=== PATIENT | male | born 1955 | race Caucasian/White ===

== ENCOUNTER 2022-04-09 13:43 | Outpatient (CLI) | payer MEDICARE | END 2022-04-09 13:44 | disposition home or self-care (01) | LOC: RAD-FRANK 13:43 | PROVIDERS: ATTEND Nurse Practitioner Family | DX: M54.50 Low back pain, unspecified (principal); M47.816 Spondylosis without myelopathy or radiculopathy, lumbar region; M43.16 Spondylolisthesis, lumbar region | CPT/HCPCS: 72100 ==

== ENCOUNTER 2022-04-18 14:15 | Outpatient (CLI) | payer MEDICARE, OTHER | END 2022-04-18 14:16 | disposition home or self-care (01) | LOC: BICCT 14:15 | PROVIDERS: ATTEND Physician Assistant Surgical | DX: S06.6X0D Traumatic subarachnoid hemorrhage without loss of consciousness, subsequent encounter (principal) | CPT/HCPCS: 70450 ==